=== PATIENT | male | born 1950 | race African-American/Black ===

== ENCOUNTER 2022-08-21 19:42 | Inpatient (IN) | payer MEDICARE, OTHER ==
[2022-08-19] MEDS: VANCOMYCIN 1G/D5W 200 ML PIGGYBACK IV ONE (23:40)
[~2022-08-21] VITALS: Ht 170.2 cm; Wt 64.9 kg
--- NOTE | 2022-08-21 19:42 | NUR ---
Dr Chong at bedside MSE in progress
--- NOTE | 2022-08-21 20:10 | NUR ---
Dr Chogn verbally ordered colorado catheter insertion
[2022-08-21 20:13] LABS: MEAN CORPUSCULAR HEMOGLOBIN 28.8 uug (23.8-33.4); MEAN CORPUSCULAR VOLUME 89.3 fL (73.0-96.2); PLATELET COUNT (AUTO) 351 K/uL (152-348)
[2022-08-21 20:22] LABS: CARBON DIOXIDE 19 mmol/L (21-32); CHLORIDE 96 mmol/L (98-107); CREATININE 3.9 mg/dL (0.6-1.3); GLUCOSE 122 mg/dL (74-106); POTASSIUM 4.7 mmol/L (3.5-5.1); UREA NITROGEN, BLOOD 79 mg/dL (7-18)
[2022-08-21 20:39] LABS: ALANINE AMINOTRANSFERASE 14 U/L (16-63); ALKALINE PHOSPHATASE 283 U/L (50-136); ASPARTATE AMINOTRANSFERASE 59 U/L (15-37); BILIRUBIN,DIRECT 0.1 mg/dL (0.0-0.2); BILIRUBIN,TOTAL 0.5 mg/dL (0.2-1.0); TOTAL PROTEIN, SERUM 8.2 g/dL (6.4-8.2)
[2022-08-21 20:47] LABS: *BILIRUBIN,URIN 1+ (NEGATIVE); *BLOOD, URINE 2+ (NEGATIVE); *CLARITY,URINE CLOUDY (CLEAR); *COLOR,URINE YELLOW (YELLOW); *KETONES,URINE NEGATIVE (NEGATIVE); *UROBILINOGEN,URINE 0.2 E.U./dl (NORMAL); LEUKOCYTE ESTERASE ,URINE 3+ (NEGATIVE); NITRITE, URINE NEGATIVE (NEGATIVE); PH,URINE 5.5 (5.0-8.0); UGLUCOSE NEGATIVE (NEGATIVE)
--- NOTE | 2022-08-21 20:56 | NUR ---
Patient taken to CT by John Sexton
--- NOTE | 2022-08-21 21:15 | NUR ---
Patient is back from CT
[2022-08-21] MEDS ORDERED: AZITHROMYCIN IV 500 MG in IV DEXTROSE 5% 250 ML IV ONE (21:30)
[2022-08-21] MEDS ORDERED: IV NS 1000 ML 1,000 ML IV ONE (21:30)
[2022-08-21] MEDS ORDERED: CEFEPIME HCL 2 G in IV DEXTROSE 5% 100 ML IV ONE (21:30)
[2022-08-21] MEDS ORDERED: AZITHROMYCIN 500MG/ D5W 250ML IVPB **ER PYXIS ONLY IV ONE (21:38)
[2022-08-21] MEDS ORDERED: CEFEPIME HCL 1 G VIAL ONE (21:38)
--- NOTE | 2022-08-21 21:40 | NUR ---
Cefexime HCl given at 2140. IV stop time done @2240
[2022-08-21 21:50] LABS: ABG BASE EXCESS -10.2 mmol/L; ABG HCO3 15.6 mmol/L; ABG PCO2 34.4 mmHg (35.0-45.0); ABG PH 7.275 (7.350-7.450); ABG SITE LEFT RADIAL; ABG TOTAL HEMOGLOBIN 11.1 G/dL (13.5-18.0); COHb 0.3 % (0.5-1.5); MetHb 0.5 % (0.0-1.5)
--- NOTE | 2022-08-21 22:37 | NUR ---
Azithromycin reassessed @1174 IV stop time @9303
[2022-08-21 22:58] LABS: BACTERIA,URINE MANY /HPF (NONE SEEN); RBC,URINE 50-80 /HPF (0-3); SQUAMOUS EPITHELIAL CELL,UR FEW /HPF (NONE SEEN); WBC,URINE TNTC /HPF (0-3)
--- NOTE | 2022-08-21 23:01 | NUR ---
Patient daughter at bedside
--- NOTE | 2022-08-21 23:15 | NUR ---
Patient placed on Bipap
--- NOTE | 2022-08-21 23:20 | NUR ---
PLACED PT ON BIPAP PER MD ORDERS. DR. BARROS WANTED THESE SETTINGS: IPAP/EPAP = 12/6, RATE = 18, FiO2 = 100%. NO SOB NOTED AT THIS TIME. WILL CONTINUE TO MONITOR.
[2022-08-21] MEDS: VANCOMYCIN 1G/D5W 200 ML PIGGYBACK IV ONE (23:40)
--- NOTE | 2022-08-21 23:40 | NUR ---
Vancocin IV 1gm given @2340 08/21/22
--- NOTE | 2022-08-22 03:57 | NUR ---
called [facility] for panel call
--- NOTE | 2022-08-22 04:30 | NUR ---
Patient has been accepted by Thierno COOK
[2022-08-22] MEDS ORDERED: ACETAMINOPHEN 325 MG TABLET PO PRN (04:45)
[2022-08-22] MEDS ORDERED: IV NS 1000 ML 1,000 ML IV ONE (04:45)
[2022-08-22] MEDS ORDERED: REMEDY ESSENTIAL ZINC PASTE 113 GM TP PRN (04:45)
[2022-08-22] MEDS ORDERED: HYDROCODONE/APAP 5-325MG TABLET PO PRN (04:45)
[2022-08-22] MEDS ORDERED: MAGNESIUM HYDROXIDE 30 ML LIQUID UDC PO PRN (04:45)
[2022-08-22] MEDS ORDERED: ONDANSETRON 4 MG/2 ML VIAL IV PRN (04:45)
--- NOTE | 2022-08-22 05:11 | NUR ---
Called third floor for beds, spoke with Claribel GOLDENstudio operations engineer in charge nurse. No beds available.
[2022-08-22] MEDS ORDERED: CEFEPIME HCL 1 G in IV DEXTROSE 5% 50 ML IV SCH (06:00)
--- NOTE | 2022-08-22 06:31 | NUR ---
Claribel hemodialysis charge nurse called, patient will be transfered to room 318
--- NOTE | 2022-08-22 08:00 | NUR ---
Report given to Nurse Mcnamara.
--- NOTE | 2022-08-22 08:45 | NUR ---
PATIENT ADMITTED FROM ER VIA BED WITH ADMITTING DX OF SEPSIS PNEUMONIA, UTI RESPONSIVE TO VERBAL AND TACTILE STIMULI, ON A BI-PAP 12-18-6-70% FIO2 SATURATING 96%. PLACED COMFORTABLY IN BED. ROUTINE ADMISSION ASSESSMENT INITIATED. WILL NOTIFY HOSPITALIST OF ADMISSION.
--- NOTE | 2022-08-22 08:45 | NUR ---
Transported pt via [facility] to 318 Tele Addendum: 08/22/22 at 0854 by KAEL Pt. transported via [facility] to [facility] Room 316, accompanied by RT. Pt. stable,VS WNL, HR 116. Pt. received by Nurse Mcnamara.
[2022-08-22 09:00] VITALS: BP 107/61
[2022-08-22] MEDS: IV NS 1000 ML 1,000 ML IV PRN (09:45)
[2022-08-22] MEDS: PANTOPRAZOLE SODIUM 40 MG TABLET.DR PO SCH (09:52)
[2022-08-22 11:20] VITALS: BP 124/66
--- NOTE | 2022-08-22 12:30 | NUR ---
SEEN BY HOSPITALIST AND DR MAIN QUICK PRINT OPERATOR WITH ORDERS, SEEM NOTES
[2022-08-22 12:44] LABS: HEMATOCRIT 30.4 % (36.7-47.1); MEAN CORPUSCULAR HEMOGLOBIN 28.7 uug (23.8-33.4); MEAN CORPUSCULAR VOLUME 88.6 fL (73.0-96.2); PLATELET COUNT (AUTO) 320 K/uL (152-348)
--- NOTE | 2022-08-22 12:45 | NUR ---
PATIENT WENT TO NUCLEAR MEDS FOR CT
[2022-08-22 13:05] LABS: ALANINE AMINOTRANSFERASE 23 U/L (16-63); ALKALINE PHOSPHATASE 238 U/L (50-136); ASPARTATE AMINOTRANSFERASE 69 U/L (15-37); BILIRUBIN,TOTAL 0.4 mg/dL (0.2-1.0); CARBON DIOXIDE 21 mmol/L (21-32); CHLORIDE 105 mmol/L (98-107); CREATININE 2.8 mg/dL (0.6-1.3); GLUCOSE 125 mg/dL (74-106); POTASSIUM 4.2 mmol/L (3.5-5.1); TOTAL PROTEIN, SERUM 7.5 g/dL (6.4-8.2); UREA NITROGEN, BLOOD 73 mg/dL (7-18)
[2022-08-22] MEDS: HEPARIN SODIUM,PORCINE 5,000 UNITS/ML VIAL SQ SCH ×2 (13:22→20:37)
[2022-08-22] MEDS ORDERED: LOSA50TA39 PO (13:29)
[2022-08-22] MEDS ORDERED: METO50TA16 PO (13:29)
[2022-08-22] MEDS ORDERED: DOCU100C36 PO (13:29)
[2022-08-22] MEDS ORDERED: PANT40TA2 PO (13:29)
[2022-08-22] MEDS ORDERED: AMLO-212 PO (13:29)
[2022-08-22] MEDS ORDERED: ATOR40TA PO (13:29)
[2022-08-22] MEDS ORDERED: FURO40TA5 PO (13:29)
[2022-08-22] MEDS ORDERED: CLOP75TA15 PO (13:29)
[2022-08-22] MEDS ORDERED: TERA2CAP4 PO (13:29)
[2022-08-22] MEDS ORDERED: ASPI-618 PO (13:29)
--- NOTE | 2022-08-22 14:00 | NUR ---
BiPap change to simple mask @ 10L. Pt saturating @ 99%
[2022-08-22 16:13] VITALS: BP 134/69
--- NOTE | 2022-08-22 17:59 | NUR ---
Simple mask @10L changed to NC @5L. Saturation remains 99%. Patient is alert but is only oriented to name. Denies any chest pain or SOB. Will continue to monitor. [facility] monitoring.
--- NOTE | 2022-08-22 19:30 | NUR ---
Received patient lying in bed. AAO to self only. Able to make eye contact when spoken to. In no apparent distress. On O2 at 5LPM via NC in place. O2 sat at 100% at this time. Sinus tachy on tele with HR of 119/min. Right wrist IV intact and patent. IVF infusing. Ariza catheter intact and draining via gravity. Turn and reposition for comfort. Howard heel kept floated with pillow. Needs anticipated to. Safety measure initiated. Continue to monitor.
[2022-08-22 19:56] VITALS: BP 140/80
[2022-08-22] MEDS ORDERED: CEFEPIME HCL 2 G in IV DEXTROSE 5% 100 ML IV SCH (21:00)
[2022-08-23] VITALS (12 sets, daily range): BP systolic 131–171; BP diastolic 73–95
--- NOTE | 2022-08-23 00:57 | NUR ---
Patient on BIPAP placed by RT.
[2022-08-23] MEDS: IV NS 1000 ML 1,000 ML IV PRN ×2 (01:38→16:32)
--- NOTE | 2022-08-23 05:05 | NUR ---
Patient AAOx1. Able to answer simple questions. Calm and cooperative. BIPAP still in place. ABG to be check this AM. Sinus tachy on tele with HR of 116/min. IV on right wrist intact and patent. No adverse reaction noted from IV antibiotic. Ariza catheter intact and draining via gravity. Needs assessed and attended to. Safety measure maintained and call light within reached.
--- NOTE | 2022-08-23 05:33 | NUR ---
Informed Dr. Yu that patient HR sustaining on the 120's-130's. Patient symptomatic. No new order given at this time.
[2022-08-23] MEDS ORDERED: VANCOMYCIN IV 750 MG in IV DEXTROSE 5% 250 ML IV ONE (06:00)
[2022-08-23 06:14] LABS: ABG BASE EXCESS -8.9 mmol/L; ABG PCO2 42.9 mmHg (35.0-45.0); ABG PO2 260.5 mmHg (75.0-100.0); ABG SITE LEFT RADIAL; ABG TOTAL HEMOGLOBIN 10.9 G/dL (13.5-18.0); COHb 0.3 % (0.5-1.5); MetHb 0.5 % (0.0-1.5); O2Hb 98.7 % (94.0-97.0); VENT MODE BIPAP
[2022-08-23] MEDS: PANTOPRAZOLE SODIUM 40 MG TABLET.DR PO SCH ×2 (06:16→08:35)
[2022-08-23 06:52] LABS: HEMATOCRIT 29.8 % (36.7-47.1); MEAN CORPUSCULAR HEMOGLOBIN 29.1 uug (23.8-33.4); MEAN CORPUSCULAR VOLUME 87.7 fL (73.0-96.2); PLATELET COUNT (AUTO) 333 K/uL (152-348)
[2022-08-23 07:17] LABS: CARBON DIOXIDE 22 mmol/L (21-32); CHLORIDE 109 mmol/L (98-107); GLUCOSE 204 mg/dL (74-106); PHOSPHOROUS 4.6 mg/dL (2.5-4.9); POTASSIUM 4.2 mmol/L (3.5-5.1); UREA NITROGEN, BLOOD 64 mg/dL (7-18)
[2022-08-23] MEDS ORDERED: VANCOMYCIN IV 1,000 MG in IV DEXTROSE 5% 250 ML IV ONE (08:00)
--- NOTE | 2022-08-23 08:00 | NUR ---
RECEIVED PATIENT AWAKE ALEERT AND ABLE TO VERBALIZE NEEDS, ON A BIPAP SETS AT 12-18-35 SATURATING 99%. DENIES PAIN OR NO SIGNS OF DISTRESS
[2022-08-23] MEDS: CEFEPIME HCL 2 G in IV DEXTROSE 5% 100 ML IV SCH ×2 (08:33→20:33)
[2022-08-23] MEDS: HEPARIN SODIUM,PORCINE 5,000 UNITS/ML VIAL SQ SCH ×2 (08:34→20:15)
--- NOTE | 2022-08-23 12:00 | NUR ---
SEEN BY DR ZHOU FOR PULMONOLOGY FOLLOW-UP, NOTED ABG RESULTS WITH ORDERS. NEW BIPAP SETTINGS ORDERED, RT NOTIFIED.
--- NOTE | 2022-08-23 12:16 | NUR ---
WOUND CARE CONSULT: PT PRESENTS WITH SACRAL INTACT DEEP TISSUE INJURY, BILATERAL HEEL INTACT DEEP TISSUE INJURIES, RT DORSAL FOOT WOUND (NO DRAINAGE) AND RT TOES WITH DRY NECROTIC TISSUE, ALL PRESENT ON ADMISSION. PT IS ON BIPAP MASK. DPM CONSULT CALLED TO DR DOWNEY. RECOMMENDATIONS MADE FOR SKIN PROTECTION. DISCUSSED WITH NURSING STAFF. PT IS ON FIRST STEP LETHA LOW AIRLOSS MATTRESS. IN AGREEMENT WITH PLAN OF CARE.
[2022-08-23] MEDS: ALBUTEROL SULFATE 2.5 MG/3 ML NEBU NEB SCH ×4 (12:58→23:16)
[2022-08-23] MEDS: IPRATROPIUM BROMIDE 0.5 MG/2.5 ML NEBU NEB SCH ×4 (12:58→23:16)
--- NOTE | 2022-08-23 13:00 | NUR ---
SEEN BY Lata HAMPTON WITH ODER TO TRANSFER PATIENT TO CCU/ICU FOR HIHER LEVEL OF CARE. NURSING SENIOR PROCESS ANALYST NOTIFIED.
[2022-08-23] MEDS: methylPREDNISolone SOD SUCC 40 MG/ML VIAL IV SCH ×2 (13:28→20:12)
--- NOTE | 2022-08-23 14:00 | NUR ---
PATIENT REMAINS ON BIPAP TOLERATING FAIRLY SATURATING 95 %, ALERT AND ABLE TO TALK BUT UNCLEAR, SR/ST ON MONITOR.
--- NOTE | 2022-08-23 15:30 | NUR ---
STILL WAITING FOR BED FROM CCU, PATIENT CLOSELY MONITORED
--- NOTE | 2022-08-23 17:00 | NUR ---
RECEIVED PT FROM [facility]; VSS PT AWAKE; DENEIES PAIN. WILL CONTINUE TO MONITOR
--- NOTE | 2022-08-23 19:48 | NUR ---
SBAR TO LIANG GOLDEN.
--- NOTE | 2022-08-23 20:00 | NUR ---
Pt resting comfortable on bipap HOB elevated at all times. No respiratory distress observed Addendum: 08/23/22 at 7018 by [facility] RN3 RN Amended: Links added.
[2022-08-24] VITALS (23 sets, daily range): BP systolic 122–178; BP diastolic 58–97
[2022-08-24] MEDS: MORPHINE SULFATE 2 MG/1 ML DISP.SYRIN IV PRN ×5 (02:33→23:37)
[2022-08-24] MEDS: ALBUTEROL SULFATE 2.5 MG/3 ML NEBU NEB SCH ×6 (03:24→22:19)
[2022-08-24] MEDS: IPRATROPIUM BROMIDE 0.5 MG/2.5 ML NEBU NEB SCH ×5 (03:24→22:19)
[2022-08-24 05:17] LABS: HEMATOCRIT 30.3 % (36.7-47.1); MEAN CORPUSCULAR HEMOGLOBIN 29.6 uug (23.8-33.4); MEAN CORPUSCULAR VOLUME 88.3 fL (73.0-96.2); PLATELET COUNT (AUTO) 320 K/uL (152-348)
[2022-08-24] MEDS: methylPREDNISolone SOD SUCC 40 MG/ML VIAL IV SCH ×3 (05:29→22:55)
[2022-08-24 05:30] LABS: CARBON DIOXIDE 20 mmol/L (21-32); CHLORIDE 114 mmol/L (98-107); CREATININE 1.5 mg/dL (0.6-1.3); GLUCOSE 138 mg/dL (74-106); MAGNESIUM 1.9 mg/dL (1.8-2.4); PHOSPHOROUS 2.9 mg/dL (2.5-4.9); POTASSIUM 3.8 mmol/L (3.5-5.1); UREA NITROGEN, BLOOD 50 mg/dL (7-18); VANCOMYCIN,RANDOM 13.3 ug/mL (18.0-26.0)
[2022-08-24 08:16] LABS: ABG BASE EXCESS -6.3 mmol/L; ABG HCO3 18.5 mmol/L; ABG PCO2 33.9 mmHg (35.0-45.0); ABG PH 7.354 (7.350-7.450); ABG SITE LEFT RADIAL; ABG TOTAL HEMOGLOBIN 10.9 G/dL (13.5-18.0); COHb 0.1 % (0.5-1.5); MetHb 0.2 % (0.0-1.5); O2Hb 97.6 % (94.0-97.0); VENT MODE BIPAP
[2022-08-24] MEDS: IV NS 1000 ML 1,000 ML IV PRN (08:18)
[2022-08-24] MEDS: CEFEPIME HCL 2 G in IV DEXTROSE 5% 100 ML IV SCH ×2 (08:18→22:57)
--- NOTE | 2022-08-24 10:00 | NUR ---
Patient was given heparin SQ. Joel Meneses RN UNABLE TO CO-SIGN DUE TO COMPUTER PROBLEMS
[2022-08-24] MEDS: GLUCERNA SHAKE 237 ML CAN PO SCH ×2 (12:00→16:45)
[2022-08-24] MEDS: VANCOMYCIN IV 1,000 MG in IV DEXTROSE 5% 250 ML IV SCH (14:33)
--- NOTE | 2022-08-24 15:20 | NUR ---
Call Loren Johnson HELPER/DRIVER,requesting PRN medications for HTN SBP 170's and Tachycardia up to 132, HELPER/DRIVER order ABG on highflow oxygen therapy;her was as well to d/c Morphine . Notify RT about HELPER/DRIVER orders. Pt remains on caridad flow n/c
[2022-08-24 15:48] LABS: ABG BASE EXCESS -5.1 mmol/L; ABG HCO3 17.8 mmol/L; ABG PCO2 26.2 mmHg (35.0-45.0); ABG PH 7.449 (7.350-7.450); ABG PO2 111.4 mmHg (75.0-100.0); ABG SITE LEFT RADIAL; ABG TOTAL HEMOGLOBIN 10.4 G/dL (13.5-18.0); COHb 0.3 % (0.5-1.5); MetHb 0.4 % (0.0-1.5); O2Hb 97.3 % (94.0-97.0); VENT MODE HF
[2022-08-24] MEDS: HEPARIN SODIUM,PORCINE 5,000 UNITS/ML VIAL SQ SCH ×2 (16:00→23:11)
[2022-08-24] MEDS ORDERED: AMLODIPINE 5 MG TABLET PO SCH (16:00)
[2022-08-24] MEDS: CLOPIDOGREL 75 MG TABLET PO SCH (16:00)
[2022-08-24] MEDS: IV D5W 1000ML 1,000 ML IV PRN (18:15)
--- NOTE | 2022-08-24 19:42 | NUR ---
eNDORSE CARE TO INCOMING CHICO Rainey
[2022-08-24] MEDS ORDERED: TERAZOSIN HCL 4 MG PO SCH (21:00)
[2022-08-24] MEDS: ATORVASTATIN 40 MG TABLET PO SCH ×2 (22:30→22:55)
[2022-08-24] MEDS: TERAZOSIN 1 MG CAPSULE PO SCH (22:56)
[2022-08-24] MEDS: METOPROLOL TARTRATE 50 MG TABLET PO SCH (22:57)
[2022-08-25] VITALS (30 sets, daily range): BP systolic 133–178; BP diastolic 69–109
--- NOTE | 2022-08-25 00:28 | NUR ---
Have been unable to get pt.to take p.o. medication. Lorenzo Burr DINING ROOM MANAGER notified and telephone orders given for IV Lopressor. No NGT orders due to HIGH FLOW o2 in progress.
--- NOTE | 2022-08-25 00:50 | NUR ---
T.O. clarification from Lorenzo Burr to hold PO meds until further evaluation.
[2022-08-25 01:02] LABS: BASOPHILS % (MANUAL) 0 % (0-2); EOSINOPHILS % (MANUAL) 0 % (0-8); LYMPHOCYTES % (MANUAL) 9 % (20-40); MONOCYTES % (MANUAL) 4 % (2-10); NEUTROPHILS % (MANUAL) 87 % (42-75)
[2022-08-25] MEDS: METOPROLOL TARTRATE 5 MG/5 ML VIAL IVP PRN (01:12)
[2022-08-25] MEDS: IPRATROPIUM BROMIDE 0.5 MG/2.5 ML NEBU NEB SCH ×7 (01:13→23:15)
[2022-08-25] MEDS: ALBUTEROL SULFATE 2.5 MG/3 ML NEBU NEB SCH ×3 (01:15→07:19)
[2022-08-25] MEDS: MORPHINE SULFATE 2 MG/1 ML DISP.SYRIN IV PRN (03:38)
--- NOTE | 2022-08-25 03:39 | NUR ---
PATIENT ON CONT HIGH FLOW @ 30%, PF 30L/M, WITH NEB Q4 HOURS, PASSIVE RX, SAT 100%, STABLE . Kami LUP Addendum: 08/25/22 at 0341 by WALLACE CROSS RT Amended: Links added.
[2022-08-25] MEDS ORDERED: METOPROLOL TARTRATE 5 MG/5 ML VIAL IVP ONE (04:00)
--- NOTE | 2022-08-25 04:00 | NUR ---
Pt. HR 130's BP up to 170's systolic. Pt. wide awake and staring at ceiling. Morphine given for painas ordered with minimal change in Vs. HR decreased to 90's but BP continues to rise. Lorenzo Burr NP called for interventions. TO for Lopressor 10mg IVP x 1 dose. See pt. flowsheet for detailed VS.
--- NOTE | 2022-08-25 05:00 | NUR ---
Pt. continues with BP 170's over80's. despite IV lopressor given. Remains awake. Monitored for pain/discomfort,SOB or general signs of distress and deterioration.
[2022-08-25 05:10] LABS: HEMATOCRIT 29.4 % (36.7-47.1); MEAN CORPUSCULAR HEMOGLOBIN 28.4 uug (23.8-33.4); MEAN CORPUSCULAR VOLUME 87.9 fL (73.0-96.2); PLATELET COUNT (AUTO) 351 K/uL (152-348)
[2022-08-25 05:55] LABS: ALANINE AMINOTRANSFERASE 23 U/L (16-63); ALKALINE PHOSPHATASE 258 U/L (50-136); ASPARTATE AMINOTRANSFERASE 30 U/L (15-37); BILIRUBIN,DIRECT 0.1 mg/dL (0.0-0.2); BILIRUBIN,TOTAL 0.4 mg/dL (0.2-1.0); CARBON DIOXIDE 22 mmol/L (21-32); CHLORIDE 122 mmol/L (98-107); CREATININE 1.5 mg/dL (0.6-1.3); GLUCOSE 140 mg/dL (74-106); MAGNESIUM 1.9 mg/dL (1.8-2.4); PHOSPHOROUS 2.2 mg/dL (2.5-4.9); POTASSIUM 3.6 mmol/L (3.5-5.1); TOTAL PROTEIN, SERUM 7.5 g/dL (6.4-8.2); UREA NITROGEN, BLOOD 47 mg/dL (7-18)
--- NOTE | 2022-08-25 06:30 | NUR ---
Order given by Lorenzo Burr NP for initation of diltiazem gtts. to start. Pharmacy called for verification of parameters.
[2022-08-25] MEDS ORDERED: DILTIAZEM HCL IV 125 MG in IV NORMAL SALINE 100 ML IV PRN ×2 (07:00→07:15)
--- NOTE | 2022-08-25 07:15 | NUR ---
Pt Hr now decreased to 90's and SBP 150s. Pt. endorsed to oncoming RN stabilizing. Kylie gtts. w/held at this time for re-evaluation. Pt. resting. injury free. 3SR up. No distress at this time.
[2022-08-25 07:41] LABS: ABG HCO3 19.1 mmol/L; ABG PCO2 28.4 mmHg (35.0-45.0); ABG PH 7.446 (7.350-7.450); ABG PO2 108.5 mmHg (75.0-100.0); ABG SITE RIGHT BRACHIAL; ABG TOTAL HEMOGLOBIN 10.4 G/dL (13.5-18.0); COHb 0.3 % (0.5-1.5); MetHb 0.3 % (0.0-1.5); O2Hb 97.5 % (94.0-97.0)
[2022-08-25] MEDS: methylPREDNISolone SOD SUCC 40 MG/ML VIAL IV SCH ×2 (07:41→22:08)
[2022-08-25] MEDS: GLUCERNA SHAKE 237 ML CAN PO SCH ×3 (08:00→17:00)
[2022-08-25] MEDS ORDERED: DOCUSATE SODIUM 100 MG CAPSULE PO SCH (09:00)
[2022-08-25] MEDS: LOSARTAN POTASSIUM 50 MG TABLET PO SCH (09:00)
[2022-08-25] MEDS: CLOPIDOGREL 75 MG TABLET PO SCH (09:00)
[2022-08-25] MEDS: METOPROLOL TARTRATE 50 MG TABLET PO SCH ×2 (09:00→22:06)
[2022-08-25] MEDS ORDERED: ASPIRIN EC 81 MG TABLET.DR PO SCH (09:00)
[2022-08-25] MEDS: NITROGLYCERIN OINT 1 GM PACKET TP SCH ×3 (09:40→22:16)
[2022-08-25] MEDS: HEPARIN SODIUM,PORCINE 5,000 UNITS/ML VIAL SQ SCH ×2 (09:41→22:33)
[2022-08-25] MEDS: IV D5W 1000ML 1,000 ML IV PRN (09:46)
[2022-08-25] MEDS: CEFEPIME HCL 2 G in IV DEXTROSE 5% 100 ML IV SCH ×2 (10:04→21:59)
[2022-08-25] MEDS: VANCOMYCIN IV 1,000 MG in IV DEXTROSE 5% 250 ML IV SCH (10:05)
--- NOTE | 2022-08-25 11:38 | NUR ---
swallow eval done by therapist. patient can not follow verbal ques. unable to participate. recommended to stay NPO.
[2022-08-25] MEDS ORDERED: NEUTRA PHOS PACKET PO ONE (17:00)
[2022-08-25] MEDS ORDERED: POTASSIUM PHOSPHATE MM 15 MMOL in IV NORMAL SALINE 250 ML IV ONE (18:00)
[2022-08-25] MEDS ORDERED: DEXTROSE 5% IV ONE (18:30)
[2022-08-25] MEDS ORDERED: POTASSIUM PHOSPHATE MM IV ONE (18:30)
[2022-08-25] MEDS: IV D5 1/2 NS 1000 ML 1,000 ML IV PRN (19:17)
[2022-08-25] MEDS: ATORVASTATIN 40 MG TABLET PO SCH (21:58)
[2022-08-25] MEDS: TERAZOSIN 1 MG CAPSULE PO SCH (22:03)
[2022-08-26] VITALS (24 sets, daily range): BP systolic 138–171; BP diastolic 65–97
[2022-08-26] MEDS: MORPHINE SULFATE 2 MG/1 ML DISP.SYRIN IV PRN ×3 (02:11→22:42)
[2022-08-26] MEDS: VANCOMYCIN IV 1,000 MG in IV DEXTROSE 5% 250 ML IV SCH (02:12)
[2022-08-26] MEDS: NITROGLYCERIN OINT 1 GM PACKET TP SCH ×4 (02:26→21:25)
[2022-08-26] MEDS: IPRATROPIUM BROMIDE 0.5 MG/2.5 ML NEBU NEB SCH ×5 (02:52→20:34)
[2022-08-26 05:10] LABS: HEMATOCRIT 28.4 % (36.7-47.1); MEAN CORPUSCULAR HEMOGLOBIN 28.9 uug (23.8-33.4); MEAN CORPUSCULAR VOLUME 87.8 fL (73.0-96.2); PLATELET COUNT (AUTO) 282 K/uL (152-348)
[2022-08-26 05:40] LABS: CARBON DIOXIDE 23 mmol/L (21-32); CHLORIDE 119 mmol/L (98-107); CREATININE 1.5 mg/dL (0.6-1.3); GLUCOSE 144 mg/dL (74-106); MAGNESIUM 1.8 mg/dL (1.8-2.4); PHOSPHOROUS 2.8 mg/dL (2.5-4.9); POTASSIUM 3.5 mmol/L (3.5-5.1); UREA NITROGEN, BLOOD 46 mg/dL (7-18)
--- NOTE | 2022-08-26 06:00 | NUR ---
--PT CONT. WITH STABLE VS. PT DOESN'T FOLLOW SIMPLE COMMDS. PT HAS GEN. WEAKNESS. PT HAS BEEN IN SR-OCCASS S.TACH WITH BRIEF ELEVATION UP TO 140-150. PT WAS ON 3L/NC OF O2 THEN RTX LO PLACED PT ON HI-FLOW. PT JULI WELL WITH POX OF 98-99%. RESPS REG/UNLAB. PT JULI RTX WELL ALSO. IV I/P VIA LEFT ARM ML. BATH AND LINEN CHANGE DONE/NO STOOL. AM LABS DONE. PT HAS NGT CLAMPED/PLACEMENT IS GOOD. PT SEEMED TO SHOW S/S OF PAIN WITH FACIAL GRIMACING. PT MED WITH MS 2MG SLOW IVP. PT SLEEPING QUIETLY AFTER MED. F/C I/P-U/O ADEQ-800CC HARMONY/CLR URINE. GEN. COND. HAS BEEN STABLE/GUARDED. PT ENDORSED TO CHICO SCHMITT. DIONY GOLDEN
[2022-08-26] MEDS: GLUCERNA SHAKE 237 ML CAN PO SCH ×3 (08:00→17:00)
[2022-08-26] MEDS: CEFEPIME HCL 2 G in IV DEXTROSE 5% 100 ML IV SCH ×2 (08:22→21:23)
[2022-08-26] MEDS: methylPREDNISolone SOD SUCC 40 MG/ML VIAL IV SCH ×2 (08:39→21:23)
[2022-08-26] MEDS: LOSARTAN POTASSIUM 50 MG TABLET PO SCH (08:39)
[2022-08-26] MEDS: CLOPIDOGREL 75 MG TABLET PO SCH (08:40)
[2022-08-26] MEDS: METOPROLOL TARTRATE 50 MG TABLET PO SCH ×2 (08:40→21:25)
[2022-08-26] MEDS: AMLODIPINE 5 MG TABLET PO SCH (08:41)
[2022-08-26] MEDS: HEPARIN SODIUM,PORCINE 5,000 UNITS/ML VIAL SQ SCH ×2 (08:44→22:11)
[2022-08-26] MEDS: ASPIRIN 81 MG TAB.CHEW NG SCH (08:44)
[2022-08-26] MEDS: DOCUSATE SODIUM 100 MG/10 ML LIQUID UDC NG SCH (10:25)
[2022-08-26] MEDS: ATORVASTATIN 40 MG TABLET PO SCH (21:23)
[2022-08-26] MEDS: TERAZOSIN 1 MG CAPSULE PO SCH (21:26)
[2022-08-27] VITALS (22 sets, daily range): BP systolic 130–171; BP diastolic 65–98
[2022-08-27] MEDS: IPRATROPIUM BROMIDE 0.5 MG/2.5 ML NEBU NEB SCH ×7 (00:02→23:24)
[2022-08-27] MEDS: METOPROLOL TARTRATE 5 MG/5 ML VIAL IVP PRN (02:00)
[2022-08-27] MEDS: NITROGLYCERIN OINT 1 GM PACKET TP SCH ×4 (03:00→22:27)
--- NOTE | 2022-08-27 03:55 | NUR ---
PATIENT HAS BEEN ON O2 @ 4L/M NC, WITH S/B HIGH FLOW WITH Q4 NEB RXS, WITH ATROVENT , THEN AFTER 12AM, PT BACK ON HIGH FLOW N/C @ 30%, 20L/M TO HELP HIM REST, DOING OK, SAT 100% APPROX. 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
[2022-08-27 05:09] LABS: HEMATOCRIT 28.4 % (36.7-47.1); MEAN CORPUSCULAR VOLUME 86.4 fL (73.0-96.2); PLATELET COUNT (AUTO) 219 K/uL (152-348)
[2022-08-27 05:33] LABS: CARBON DIOXIDE 22 mmol/L (21-32); CHLORIDE 117 mmol/L (98-107); CREATININE 1.4 mg/dL (0.6-1.3); GLUCOSE 160 mg/dL (74-106); MAGNESIUM 1.6 mg/dL (1.8-2.4); PHOSPHOROUS 2.6 mg/dL (2.5-4.9); POTASSIUM 3.5 mmol/L (3.5-5.1); UREA NITROGEN, BLOOD 44 mg/dL (7-18)
--- NOTE | 2022-08-27 06:00 | NUR ---
--PT CONT. WITH STABLE VS. PT HAS BEEN NON-VERB. PT HAS GEN EDEMA. IV I/P VIA LEFT ARM ML. PT CONT. IN SR. PT HAS WAS ON 4L/NC BUT LATER CHANGED TO HI-FLOW 30% (BY BELLA BRAND). PT'S BP WAS UP TO 170'S SYSTOLIC. PT MED WITH LOPRESSOR 5MG SLOW IVP(SEE EMAR). F/C I/P-U/O 850CC-HARMONY/CLR. PT HAD STOOL MOD AMT-BRN DIARRHEA. BATH AND LINEN CHANGE DONE. PT HAS NGT I/P WITH T.FEEDG. PT JULI WELL WITH RESID OF 30-80CC. PT HAS HOB UP>30 DEGREES. AM LABS DONE. GEN COND. HAS BEEN STABLE. PT ENDORSED TO CHICO SCHMITT. DIONY GOLDEN
[2022-08-27] MEDS: CEFEPIME HCL 2 G in IV DEXTROSE 5% 100 ML IV SCH ×2 (08:47→21:38)
[2022-08-27] MEDS: ASPIRIN 81 MG TAB.CHEW NG SCH (08:48)
[2022-08-27] MEDS: methylPREDNISolone SOD SUCC 40 MG/ML VIAL IV SCH ×2 (08:48→22:25)
[2022-08-27] MEDS: LOSARTAN POTASSIUM 50 MG TABLET PO SCH (08:49)
[2022-08-27] MEDS: CLOPIDOGREL 75 MG TABLET PO SCH (08:58)
[2022-08-27] MEDS: METOPROLOL TARTRATE 50 MG TABLET PO SCH ×2 (08:58→22:27)
[2022-08-27] MEDS: AMLODIPINE 5 MG TABLET PO SCH (08:59)
[2022-08-27] MEDS: DOCUSATE SODIUM 100 MG/10 ML LIQUID UDC NG SCH (09:00)
[2022-08-27] MEDS: HEPARIN SODIUM,PORCINE 5,000 UNITS/ML VIAL SQ SCH ×2 (09:02→22:33)
[2022-08-27] MEDS: MAGNESIUM SULFATE/D5W 100 ML IV SCH ×2 (10:37→11:26)
[2022-08-27 10:51] LABS: ABG BASE EXCESS -4.5 mmol/L; ABG HCO3 19.2 mmol/L; ABG PCO2 30.7 mmHg (35.0-45.0); ABG PH 7.414 (7.350-7.450); ABG SITE LEFT RADIAL; ABG TOTAL HEMOGLOBIN 10.6 G/dL (13.5-18.0); COHb 0.3 % (0.5-1.5); MetHb 0.6 % (0.0-1.5); VENT MODE HF NC
--- NOTE | 2022-08-27 20:00 | NUR ---
--RECEIVED PT WITH STABLE VS. BP 144/85, HR 102, RR 19 AND POX 99%. PT IS AFEBRILE 98.5F/AX. PT HAS BEEN IN SR-S.TACH OF 102. PT HAS NGT FEEDING. PT JULI WELL/GLUCERNA@55CC/HR-RESID. IS 30CC. PT HAS HOB UP>30 DEGREES. IV I/P VIA LEFT ARM WITH MAINT IVF OF D51/2NS@50CC/HR.. PT HAS DISPO FOR TRANSFER TO [facility]. PT HAS RM 311. REPORT CALLED TO CHICO WYATT @2014. DIONY GOLDEN
--- NOTE | 2022-08-27 20:50 | NUR ---
2049-PT CONT. WITH STABLE VS. SR-LOW S.TACH OF 103/NO ECTOPY. PT CONT. ON 3L/NC WITH POX OF 99%. PT TRANSFERED VIA BED WITH WITH ACLS PROTOCOL WITH RTX AND 02 3L/NC TO RM 311. RN WILL PRESENT. PT TRANSFERED IN STABLE COND. DIONY GOLDEN
--- NOTE | 2022-08-27 21:00 | NUR ---
RECEIVED PATIENT FROM ICU UNIT, PATIENT AWAKE RESPONSIVE, ON FAIR BUT STABLE CONDITION, NO SOB NO CHEST PAIN, NOTED, SINUS TACHY ON TELE MONITOR HR 101, AFEBRILE, NO S/S OF PAIN NOR DISCOMFORT, CONT TO MONITOR.
[2022-08-27] MEDS: ATORVASTATIN 40 MG TABLET PO SCH (22:27)
[2022-08-27] MEDS: TERAZOSIN 1 MG CAPSULE PO SCH (22:34)
[2022-08-27] MEDS: MORPHINE SULFATE 2 MG/1 ML DISP.SYRIN IV PRN (23:42)
[2022-08-28] VITALS: BP 133/76
--- NOTE | 2022-08-28 01:58 | NUR ---
NGT WAS CHANGED, TOLERATE WELL, NO NAUSEA NO VOMITING, NO RESIDUAL NOTED, CONT TO MONITOR. Addendum: 08/28/22 at 0638 by NATI HERNANDEZ RN NGT FEEDING WAS CHANGED, TOLERATE WELL, NO NAUSEA NO VOMITING, NO RESIDUAL NOTED, CONT TO MONITOR.
[2022-08-28] MEDS: IPRATROPIUM BROMIDE 0.5 MG/2.5 ML NEBU NEB SCH ×6 (03:10→23:02)
[2022-08-28 04:00] VITALS: BP 143/86
[2022-08-28] MEDS: NITROGLYCERIN OINT 1 GM PACKET TP SCH ×4 (04:09→20:48)
--- NOTE | 2022-08-28 06:38 | NUR ---
PATIENT EYES OPEN, NO SOB NO CHEST PAIN, HOB ELEVATED, TOLERATE NGT, NO RESIDUAL NOTED, NO DIARRHEA, NO N/V NOTED AT THIS TIME. PATIENT SINUS RHYTHM WITH PAC EPISODE, ON 3 LITER NC, SAT 99%, MORPHINE GIVEN PRN WITH EFFECTIVE RESULTS, NO MOANING NOTED, PATIENT SLEEP INTERMITTENTLY, JIMÉNEZ CATH PATENT WITH YELLOW COLOR URINE IN MODERATE. TX CONT ON MULTIPLE WOUNDS, DRESSING CLEAN AND DRY, INTACT. PATIENT KEPT CLEAN AND DRY AND COMFORTABLE, CONT TO MONITOR.
[2022-08-28 06:44] LABS: HEMATOCRIT 26.8 % (36.7-47.1); PLATELET COUNT (AUTO) 215 K/uL (152-348)
[2022-08-28 07:33] VITALS: BP 159/86
[2022-08-28 07:40] LABS: CARBON DIOXIDE 22 mmol/L (21-32); CHLORIDE 116 mmol/L (98-107); CREATININE 1.4 mg/dL (0.6-1.3); GLUCOSE 147 mg/dL (74-106); MAGNESIUM 1.9 mg/dL (1.8-2.4); POTASSIUM 3.8 mmol/L (3.5-5.1); UREA NITROGEN, BLOOD 51 mg/dL (7-18)
--- NOTE | 2022-08-28 08:00 | NUR ---
AWAKE ALERT , MOANS OCCASIONALLY. ON 3L O2 NC SATURATING 100%. NGT OUT OF POSITION WILL F/U WITH XRAY.. ST ON MONITOR
[2022-08-28] MEDS: ASPIRIN 81 MG TAB.CHEW NG SCH (09:00)
[2022-08-28] MEDS: LOSARTAN POTASSIUM 50 MG TABLET PO SCH (09:01)
[2022-08-28] MEDS: CLOPIDOGREL 75 MG TABLET PO SCH (09:01)
[2022-08-28] MEDS: methylPREDNISolone SOD SUCC 40 MG/ML VIAL IV SCH ×2 (09:01→20:46)
[2022-08-28] MEDS: METOPROLOL TARTRATE 50 MG TABLET PO SCH (09:01)
[2022-08-28] MEDS: AMLODIPINE 5 MG TABLET PO SCH (09:01)
[2022-08-28] MEDS: HEPARIN SODIUM,PORCINE 5,000 UNITS/ML VIAL SQ SCH ×2 (09:02→20:47)
[2022-08-28] MEDS: DOCUSATE SODIUM 100 MG/10 ML LIQUID UDC NG SCH (09:08)
[2022-08-28] MEDS: CEFEPIME HCL 2 G in IV DEXTROSE 5% 100 ML IV SCH ×2 (09:09→20:44)
[2022-08-28] MEDS ORDERED: hydrALAZINE HCL 20 MG/1 ML VIAL IV PRN (09:30)
--- NOTE | 2022-08-28 11:00 | NUR ---
RESULTS OF CXR SHOWED NGT NOT IN PLACED, NEW NGT RE-INSERTED. AWAITING CXR FOR PLACEMENT
[2022-08-28 11:32] VITALS: BP 168/92
--- NOTE | 2022-08-28 12:00 | NUR ---
NO ACUTE CHANGE FROM MORNING ASSESSMENT
[2022-08-28] MEDS: IV D5 1/2 NS 1000 ML 1,000 ML IV PRN (15:50)
[2022-08-28 16:00] VITALS: BP 157/91
[2022-08-28] MEDS ORDERED: NEUTRA PHOS PACKET GT ONE (16:00)
--- NOTE | 2022-08-28 17:00 | NUR ---
TUBE FEEDING RESTARTED ORDERED. CONTINUE [facility] MONITORING. ST ON MONITOR
[2022-08-28] MEDS: METOPROLOL TARTRATE 5 MG/5 ML VIAL IVP PRN (19:54)
[2022-08-28 20:00] VITALS: BP 132/80
[2022-08-28] MEDS: ATORVASTATIN 40 MG TABLET PO SCH (20:46)
[2022-08-28] MEDS: TERAZOSIN 1 MG CAPSULE PO SCH (20:46)
[2022-08-28] MEDS: MORPHINE SULFATE 2 MG/1 ML DISP.SYRIN IV PRN (23:22)
[2022-08-29] VITALS: BP 140/80
[2022-08-29] MEDS: METOPROLOL TARTRATE 5 MG/5 ML VIAL IVP PRN (01:37)
[2022-08-29] MEDS: IPRATROPIUM BROMIDE 0.5 MG/2.5 ML NEBU NEB SCH ×6 (03:47→23:30)
[2022-08-29 04:00] VITALS: BP 151/75
[2022-08-29] MEDS: NITROGLYCERIN OINT 1 GM PACKET TP SCH ×4 (04:19→20:12)
[2022-08-29] MEDS: MORPHINE SULFATE 2 MG/1 ML DISP.SYRIN IV PRN (04:22)
--- NOTE | 2022-08-29 05:47 | NUR ---
Pt rested well in between care; HHN per RT; suctioned oral secretions; pain management with morphine; episodes of tachycardia, metoprolol given IVP; dressings to sacrum and right foot done; photos taken as well; tolerated NGT feeding; continue to monitor; continue plan of care.
[2022-08-29 06:39] LABS: CARBON DIOXIDE 23 mmol/L (21-32); CHLORIDE 116 mmol/L (98-107); CREATININE 1.4 mg/dL (0.6-1.3); GLUCOSE 159 mg/dL (74-106); MAGNESIUM 1.9 mg/dL (1.8-2.4); PHOSPHOROUS 2.4 mg/dL (2.5-4.9); UREA NITROGEN, BLOOD 51 mg/dL (7-18)
[2022-08-29 07:27] LABS: HEMATOCRIT 26.1 % (36.7-47.1); MEAN CORPUSCULAR HEMOGLOBIN 28.8 uug (23.8-33.4); MEAN CORPUSCULAR VOLUME 86.4 fL (73.0-96.2); PLATELET COUNT (AUTO) 172 K/uL (152-348)
[2022-08-29 07:50] VITALS: BP 141/88
--- NOTE | 2022-08-29 08:00 | NUR ---
PATIENT ON A [facility] STATUS OPENS EYES TO TOUCH AND VERBAL STIMULI. WITH GLUCERNA FEEDING AT 55 MLS/HR NO RESIDUAL NOTED
[2022-08-29] MEDS: methylPREDNISolone SOD SUCC 40 MG/ML VIAL IV SCH ×2 (08:57→20:16)
[2022-08-29] MEDS: DOCUSATE SODIUM 100 MG/10 ML LIQUID UDC NG SCH (08:57)
[2022-08-29] MEDS: ASPIRIN 81 MG TAB.CHEW NG SCH (08:58)
[2022-08-29] MEDS: CLOPIDOGREL 75 MG TABLET PO SCH (09:01)
[2022-08-29] MEDS: LOSARTAN POTASSIUM 50 MG TABLET PO SCH (09:01)
[2022-08-29] MEDS: AMLODIPINE 5 MG TABLET PO SCH (09:34)
[2022-08-29] MEDS: METOPROLOL TARTRATE 50 MG TABLET PO SCH ×2 (09:37→20:16)
[2022-08-29] MEDS: IV D5 1/2 NS 1000 ML 1,000 ML IV PRN (09:48)
--- NOTE | 2022-08-29 12:30 | NUR ---
PLAN DC HOME WITH POST PEG WITH [facility] FOLLOW-UP
[2022-08-29] MEDS: HEPARIN SODIUM,PORCINE 5,000 UNITS/ML VIAL SQ SCH ×2 (12:47→20:15)
[2022-08-29 16:04] VITALS: BP 157/82
[2022-08-29] MEDS: IV D5W 1000ML 1,000 ML IV PRN ×2 (16:20→23:56)
[2022-08-29] MEDS ORDERED: NEUTRA PHOS PACKET PO ONE (17:00)
--- NOTE | 2022-08-29 17:44 | NUR ---
PATIENT TOLERATING O2 AT 3L NC SATURATING 100%, CONTINUE TUBE FEEDING ORDERED NO RESIDUAL NOTED. AFEBRILE
[2022-08-29 20:00] VITALS: BP 101/63
[2022-08-29] MEDS: TERAZOSIN 1 MG CAPSULE PO SCH (20:12)
[2022-08-29] MEDS: ATORVASTATIN 40 MG TABLET PO SCH (20:12)
[2022-08-29] MEDS ORDERED: ADENOSINE 6 MG/2 ML SYR IV ONE ×2 (22:15→22:16)
[2022-08-29] MEDS ORDERED: NOREPINEPHRINE BITARTRATE 4 MG/4 ML VIAL IV ONE ×2 (22:16)
[2022-08-29] MEDS ORDERED: LORAZEPAM 2 MG/1 ML VIAL ONE (22:27)
[2022-08-29] MEDS ORDERED: NOREPINEPHRINE BITARTRATE 8 MG in IV NORMAL SALINE 242 ML IV PRN (22:30)
--- NOTE | 2022-08-29 23:45 | NUR ---
PATIENT WAS ON O2 @ 4L/M NC , HAD NEB RX, APPROX. 20:20- THEN APPROX. 21:30 STAT EKG , PT WITH HIGH HR 160 APPROX, PT PLACED ON HIGH FLOW @ 20L/M @ 50% , SAT 96%. WITH SLIGHT INCREASE IN RESP. DISTRESS, THEN CALLED FOR REPEAT X 2 EKG, DR BARROS CALLED ON CASE GIVEN MEDS AND SHOCK SEVERAL TIMES, WITH O2 TRANSPORT WITH RT ASSIST TO ER,APPROX. 23:20 ; THEN PLACED BACK ON HIGH FLOW @ 30L/M @ 100%, DUE TO DECREASE IN SAT . Kami CROSS HAND FLATWORK FINISHER Addendum: 08/29/22 at 2353 by WALLACE CROSS RT Amended: Links added.
--- NOTE | 2022-08-29 23:59 | NUR ---
[address] Chong communicated to Dr Moreno and Salty Whelan(SILVICULTURIST) regarding patients change of condition. hr 160s and map 50s. pt reansferred to icu. message left for patients son regarding change of condition and transfer to icu unit. Salty Whelan ordered neosynephrine in place of levo due to heart rate, lab draws and amiodarone.
[2022-08-30] VITALS (29 sets, daily range): BP systolic 93–140; BP diastolic 52–69
[2022-08-30] MEDS ORDERED: AMIODARONE HCL IV 150 MG in IV DEXTROSE 5% 100 ML IV ONE ×2
[2022-08-30] MEDS ORDERED: AMIODARONE HCL IV 450 MG in IV DEXTROSE 5% 250 ML IV PRN ×2
[2022-08-30] MEDS ORDERED: AMIODARONE HCL 150 MG/3 ML VIAL IV ONE ×3 (00:13→02:38)
[2022-08-30] MEDS ORDERED: PHENYLEPHRINE 10 MG/1 ML VIAL ONE ×2 (00:14→02:38)
[2022-08-30 00:36] LABS: ALANINE AMINOTRANSFERASE 83 U/L (16-63); ALKALINE PHOSPHATASE 367 U/L (50-136); ASPARTATE AMINOTRANSFERASE 87 U/L (15-37); BILIRUBIN,TOTAL 0.4 mg/dL (0.2-1.0); CARBON DIOXIDE 27 mmol/L (21-32); CHLORIDE 115 mmol/L (98-107); CREATININE 1.5 mg/dL (0.6-1.3); GLUCOSE 205 mg/dL (74-106); POTASSIUM 4.5 mmol/L (3.5-5.1); TOTAL PROTEIN, SERUM 6.8 g/dL (6.4-8.2); UREA NITROGEN, BLOOD 56 mg/dL (7-18)
[2022-08-30] MEDS ORDERED: PHENYLEPHRINE IV 50 MG in IV NORMAL SALINE 245 ML IV PRN ×3 (01:30)
[2022-08-30] MEDS ORDERED: NITROGLYCERIN OINT 1 GM PACKET TP ONE ×2 (02:41→08:07)
[2022-08-30] MEDS: NITROGLYCERIN OINT 1 GM PACKET TP SCH ×2 (02:52→08:20)
[2022-08-30] MEDS: IPRATROPIUM BROMIDE 0.5 MG/2.5 ML NEBU NEB SCH ×3 (03:30→10:48)
[2022-08-30 05:07] LABS: HEMATOCRIT 26.8 % (36.7-47.1); MEAN CORPUSCULAR HEMOGLOBIN 28.6 uug (23.8-33.4); MEAN CORPUSCULAR VOLUME 86.9 fL (73.0-96.2); PLATELET COUNT (AUTO) 174 K/uL (152-348)
[2022-08-30 05:17] LABS: CARBON DIOXIDE 24 mmol/L (21-32); CHLORIDE 111 mmol/L (98-107); CREATININE 1.7 mg/dL (0.6-1.3); GLUCOSE 138 mg/dL (74-106); MAGNESIUM 1.7 mg/dL (1.8-2.4); PHOSPHOROUS 3.4 mg/dL (2.5-4.9); POTASSIUM 4.5 mmol/L (3.5-5.1); UREA NITROGEN, BLOOD 62 mg/dL (7-18)
--- NOTE | 2022-08-30 05:54 | NUR ---
pt's hr has lowered down to the 110s-120s. pt still on hi tanmay, 20li@70%. pt was on 100% but was changed to 70% at 0500. pt currently stating around 96-97%. pt currently on amiodarone drip. hr was 160s-170s but now 120s. levo was also dc'd and jasmin started in place.
--- NOTE | 2022-08-30 06:40 | NUR ---
amiodarone dosage changed to 16.6 ml/hr x18 hours (08/31/22@ 0040).
[2022-08-30] MEDS ORDERED: IPRATROPIUM BROMIDE 0.5 MG/2.5 ML NEBU ONE ×2 (07:03→10:33)
[2022-08-30] MEDS ORDERED: CLOPIDOGREL 75 MG TABLET NG SCH ×2 (07:38→09:00)
[2022-08-30] MEDS ORDERED: ATORVASTATIN 40 MG TABLET NG SCH ×2 (07:38→21:00)
[2022-08-30] MEDS ORDERED: TERAZOSIN 1 MG CAPSULE NG SCH ×2 (07:38→21:00)
[2022-08-30] MEDS ORDERED: CLOPIDOGREL 75 MG TABLET ONE (07:55)
[2022-08-30] MEDS ORDERED: MAGNESIUM SULFATE/D5W 100 ML ONE ×2 (07:55→07:56)
[2022-08-30] MEDS ORDERED: HEPARIN SODIUM,PORCINE 5,000 UNITS/ML VIAL ONE (08:07)
[2022-08-30] MEDS ORDERED: methylPREDNISolone SOD SUCC 125 MG/2 ML VIAL ONE (08:07)
[2022-08-30] MEDS ORDERED: ASPIRIN 81 MG TAB.CHEW ONE (08:07)
[2022-08-30] MEDS ORDERED: DOCUSATE SODIUM 100 MG/10 ML LIQUID UDC ONE (08:07)
[2022-08-30] MEDS ORDERED: ACETAMINOPHEN 650 MG/20.3 ML LIQUID UDC ONE (08:14)
[2022-08-30] MEDS: methylPREDNISolone SOD SUCC 40 MG/ML VIAL IV SCH (08:19)
[2022-08-30] MEDS: MAGNESIUM SULFATE/D5W 100 ML IV SCH ×2 (08:19→09:07)
[2022-08-30] MEDS: DOCUSATE SODIUM 100 MG/10 ML LIQUID UDC NG SCH (08:19)
[2022-08-30] MEDS: ASPIRIN 81 MG TAB.CHEW NG SCH (08:19)
[2022-08-30] MEDS: HEPARIN SODIUM,PORCINE 5,000 UNITS/ML VIAL SQ SCH (08:22)
[2022-08-30] MEDS ORDERED: LORAZEPAM 2 MG/1 ML VIAL IV PRN (11:45)
[2022-08-30] MEDS ORDERED: CEFEPIME HCL 2 G in IV DEXTROSE 5% 100 ML IV SCH (12:00)
[2022-08-30] MEDS: MORPHINE SULFATE PF IV DRIP 100 MG in IV DEXTROSE 5% 96 ML IV PRN ×4 (12:41→18:21)
--- NOTE | 2022-08-30 18:20 | NUR ---
pt received from ccu via bed for comfort measure
[2022-08-30] MEDS: LORAZEPAM 2 MG/1 ML VIAL IV PRN (18:36)
--- NOTE | 2022-08-30 19:25 | NUR ---
Patient in bed with eyes closed, not in resp distress. Facial grimacing noted. Comfort measures rendered. Repositioned, kept clean and dry.
[2022-08-30] MEDS: SCOPOLAMINE PATCH 1 MG/72 HRS PATCH TD SCH ×2 (20:45→22:11)
[2022-08-30] MEDS ORDERED: ACETAMINOPHEN 650 MG SUPP.RECT RC PRN (20:45)
[2022-08-30] MEDS ORDERED: SCOPOLAMINE PATCH 1 MG/72 HRS PATCH TD ONE (21:58)
[2022-08-31] VITALS: BP 125/53
[2022-08-31] MEDS: MORPHINE SULFATE PF IV DRIP 100 MG in IV DEXTROSE 5% 96 ML IV PRN ×5 (01:37→23:45)
[2022-08-31] MEDS: LORAZEPAM 2 MG/1 ML VIAL IV PRN ×3 (01:43→10:02)
--- NOTE | 2022-08-31 01:48 | NUR ---
Patient reach 20mg/hr maximum dose of morphine, MD Mistry notified as ordered with no new order. Patient moaning, with facial grimace. Continue to provide comfort measures. V/S T99.0 BP125/53 R18 P95.
[2022-08-31 06:49] LABS: CARBON DIOXIDE 23 mmol/L (21-32); CHLORIDE 112 mmol/L (98-107); CREATININE 2.6 mg/dL (0.6-1.3); GLUCOSE 73 mg/dL (74-106); MAGNESIUM 2.3 mg/dL (1.8-2.4); PHOSPHOROUS 4.1 mg/dL (2.5-4.9); POTASSIUM 4.2 mmol/L (3.5-5.1)
[2022-08-31 07:54] LABS: HEMATOCRIT 21.4 % (36.7-47.1); MEAN CORPUSCULAR HEMOGLOBIN 28.7 uug (23.8-33.4); MEAN CORPUSCULAR VOLUME 87.3 fL (73.0-96.2); PLATELET COUNT (AUTO) 120 K/uL (152-348)
[2022-08-31 08:13] LABS: UREA NITROGEN, BLOOD 81 mg/dL (7-18)
[2022-08-31 08:42] LABS: ABG BASE EXCESS -7.5 mmol/L; ABG HCO3 22.3 mmol/L; ABG PCO2 74.8 mmHg (35.0-45.0); ABG PH 7.093 (7.350-7.450); ABG PO2 57.2 mmHg (75.0-100.0); ABG SITE LEFT RADIAL; ABG TOTAL HEMOGLOBIN 8.3 G/dL (13.5-18.0); COHb 0.7 % (0.5-1.5); MetHb 0.1 % (0.0-1.5); O2Hb 76.4 % (94.0-97.0); VENT MODE Nasal Cannula
[2022-08-31 09:00] VITALS: BP 58/30
--- NOTE | 2022-08-31 13:39 | NUR ---
Patient is currently at 20mg/hr maximum dose of morphine, with a new order of morphine bag hanged at 12:15 pm. Patient is moaning, having some agonal breathing. Continue to provide comfort measures.
[2022-08-31 15:05] VITALS: BP 72/36
[2022-08-31 20:00] VITALS: BP 72/34
[2022-09-01] MEDS: MORPHINE SULFATE PF IV DRIP 100 MG in IV DEXTROSE 5% 96 ML IV PRN (05:01)
--- NOTE | 2022-09-01 05:46 | NUR ---
Patient in bed with eyes closed, noted with agonal breathing, on going morphine drip. Comfort care provided.
--- NOTE | 2022-09-01 09:08 | NUR ---
Patient unresponsive, No BP, pulse, respiration. Pupils dilated and fixed. Pronounced by Cathy Padron RN CN at 0810. Informed Attending Salty Whelan, Jet Handler Dalia Aguillon, Admitting Jesus Oquendo. Called [facility] spoke with Elisa with Case No [id number]. Spoke with son Hussain TorresJr. and will be coming in to see patient, will wait for post mortem care.
--- NOTE | 2022-09-01 13:40 | NUR ---
Son seen patient. Post mortem care done. Transported to [facility] by Security. Cross Tie Cutter informed.
== END 2022-09-01 08:10 | DRG 871 ==
LOC: ER 19:42 → TELE3 08-22 04:35 → TELE-TD3 08-22 12:21 → TELE3 08-23 10:27 → CCU 08-23 18:16 → TELE-TD3 08-27 21:00 → CCU 08-29 23:05 → MEDSURG3 08-30 18:03
PROVIDERS: ADMIT Nurse Practitioner Acute Care; ATTEND Nurse Practitioner Family
PROC: 05HC33Z Insertion of Infusion Device into Left Basilic Vein, Percutaneous Approach (ICD-10-PCS; principal; 2022-08-23)
PROC: B54NZZA Ultrasonography of Left Upper Extremity Veins, Guidance (ICD-10-PCS; 2022-08-23)
DX: A41.9 Sepsis, unspecified organism (principal); J69.0 Pneumonitis due to inhalation of food and vomit; N17.0 Acute kidney failure with tubular necrosis; J96.21 Acute and chronic respiratory failure with hypoxia; N39.0 Urinary tract infection, site not specified; E87.20 Acidosis, unspecified; D68.69 Other thrombophilia; E44.0 Moderate protein-calorie malnutrition; E11.52 Type 2 diabetes mellitus with diabetic peripheral angiopathy with gangrene; I96 Gangrene, not elsewhere classified; C79.51 Secondary malignant neoplasm of bone; C34.92 Malignant neoplasm of unspecified part of left bronchus or lung; C34.91 Malignant neoplasm of unspecified part of right bronchus or lung; E87.1 Hypo-osmolality and hyponatremia; Z51.5 Encounter for palliative care; E86.0 Dehydration; E88.09 Other disorders of plasma-protein metabolism, not elsewhere classified; F03.90 Unspecified dementia, unspecified severity, without behavioral disturbance, psychotic disturbance, mood disturbance, and anxiety; I48.91 Unspecified atrial fibrillation; Z20.822 Contact with and (suspected) exposure to COVID-19; Z87.891 Personal history of nicotine dependence; R62.7 Adult failure to thrive; L85.3 Xerosis cutis; B96.20 Unspecified Escherichia coli [E. coli] as the cause of diseases classified elsewhere; R13.10 Dysphagia, unspecified; E86.1 Hypovolemia; R74.01 Elevation of levels of liver transaminase levels; Z68.22 Body mass index [BMI] 22.0-22.9, adult; N18.9 Chronic kidney disease, unspecified; L89.616 Pressure-induced deep tissue damage of right heel; L89.896 Pressure-induced deep tissue damage of other site; S91.311A Laceration without foreign body, right foot, initial encounter; X58.XXXA Exposure to other specified factors, initial encounter; Y93.9 Activity, unspecified; Y92.89 Other specified places as the place of occurrence of the external cause; D63.8 Anemia in other chronic diseases classified elsewhere; K76.1 Chronic passive congestion of liver; Z66 Do not resuscitate
CPT/HCPCS: 36415; 36600; 70030-TC; 71045; 71250; 82803; 83605; 83735; 84100; 84443; 84484; 85025; 85730; 87040; 87077; 87086; 87400; 93005; 94640; 94660; 99082-TC; A4663; A6209; A6213; G0378; J0153; J0282; J0456; J0692; J1644; J2060; J2270; J2274; J2370; J2920; J2930; J3370; J3475; J3490; J3590; J7040; J7042; J7050; J7070